=== PATIENT | female | born 1990 | race African-American/Black ===

== ENCOUNTER 2016-05-07 21:30 | Emergency (ER) | payer OTHER ==
[~2016-05-07] VITALS: Ht 160 cm; Wt 91.6 kg
[~2016-05-07 21:30] MED LIST: ACETAMINOPHEN-1 EAC1 PO; ACETAMINOPHEN-120 ML PO; AMOXICILLIN875 MG PO; APAP500; AUGMENTIN 500-1 EACH PO; BACTRIM DS TAB1 EACH PO; CITRATE OF MAG296 ML PO; COLACE 100 MG100 MG; DERMOPLAST SPRA56 ML; FLAGYL500 MG PO; FLEET ENEMA118 ML RC; HYDROCODON-ACE1 EAC7 PO; HYDROCORTISONE30 G9; IBUPROFEN 200200 M1 PO; IBUPROFEN 600600 M1 PO; IBUPROFEN 800800 M1; IBUPROFEN 800800 MG PO; IRON325; LANOLIN56 GM; MACROBID 100 M100 M1 PO; NAPROSYN500 MG PO; NOHOMEMEDICATIONS; NORCO 5-325 TA1 EACH PO; PHENERGAN 25 MG25 M1 PO; PRENATAL COMPL1 EACH PO; PRILOSEC40 MG PO; TRINATE TABLET1 TAB PO; TUCKS MEDICATE1 EAC1; ULTRAM 50MG TAB50 MG PO; UNICOMPLEX M TA1 TA1 PO; VICODIN 5-5001 EACH PO; ZANTAC 150MG T150 M1 PO; ZOFRAN 4 MG ORAL4 MG PO; ZOFRAN ODT4 MG PO
[2016-05-07 21:51] LABS: URINE BILIRUBIN NEGATIVE (Negative); URINE BLOOD TRACE (Negative); URINE COLOR YELLOW; URINE GLUCOSE-RANDOM* NEGATIVE (Negative); URINE KETONES TRACE (Negative); URINE LEUKOCYTES-REFLEX NEGATIVE (Negative); URINE PROTEIN (DIPSTICK) TRACE (Negative); URINE UROBILINOGEN >= 8.0 E.U./dl (0.2-1.0)
[2016-05-07 22:07] LABS: ABSOLUTE NEUTROPHILS 2.3 thou/uL (1.4-8.2); BASOPHILS 0.4 % (0.0-2.0); EOSINOPHILS 1.9 % (0.0-3.0); HEMATOCRIT 38.7 % (37.0-47.0); HEMOGLOBIN 12.9 gm/dL (12.0-15.0); LYMPHOCYTES 35.2 % (24.0-44.0); MCH 29.1 pg (26.0-34.0); MCHC 33.4 g/dL (28.0-37.0); MCV 87.1 fL (80.0-100.0); MONOCYTES 8.8 % (1.0-8.0); PLATELET COUNT 283 thou/uL (150-400); POLYS 53.7 % (36.0-66.0); RBC 4.45 mil/uL (4.20-5.00); RDW 14.4 % (10.5-14.5); WBC 4.3 thou/uL (4.0-11.0)
[2016-05-07 22:08] LABS: MANUAL DIFF NO
[2016-05-07 23:18] LABS: ALBUMIN 2.8 g/dL (3.4-5.0); CALCIUM 7.7 mg/dL (8.5-10.1); CREATININE 0.7 mg/dL (0.6-1.3); POTASSIUM 3.1 mmol/L (3.5-5.1); TOTAL BILIRUBIN 0.5 mg/dL (<0.1-1.0); TOTAL PROTEIN 6.6 g/dL (6.4-8.2)
[2016-05-07] MEDS ORDERED: ZOFRAN ODT4 MG PO (23:39)
[2016-05-08 00:21] VITALS: BP 126/70
== END 2016-05-08 00:22 | disposition home or self-care (01) ==
LOC: ER 21:30
PROVIDERS: Emergency Medicine
DX: R11.2 Nausea with vomiting, unspecified (principal)

== ENCOUNTER 2016-07-17 20:47 | Emergency (ER) | payer OTHER ==
[~2016-07-17] VITALS: Ht 157.5 cm; Wt 90.7 kg
[~2016-07-17 20:47] MED LIST changes: +POLYMYXIN B/TMP10 ML OP
[2016-07-17] MEDS ORDERED: NORCO 5-325 TA1 EACH PO (21:41)
[2016-07-17 21:55] VITALS: BP 121/79
== END 2016-07-17 21:55 | disposition home or self-care (01) ==
LOC: ER 20:47
DX: S93.502A Unspecified sprain of left great toe, initial encounter (principal); X58.XXXA Exposure to other specified factors, initial encounter; Y93.89 Activity, other specified; Y92.89 Other specified places as the place of occurrence of the external cause; Y99.8 Other external cause status

== ENCOUNTER 2016-10-08 18:03 | Emergency (ER) | payer OTHER ==
[~2016-10-08] VITALS: Ht 157.5 cm; Wt 90.7 kg
[2016-10-08 18:20] LABS: URINE BILIRUBIN NEGATIVE (Negative); URINE BLOOD TRACE (Negative); URINE COLOR YELLOW; URINE GLUCOSE-RANDOM* NEGATIVE (Negative); URINE KETONES NEGATIVE (Negative); URINE LEUKOCYTES-REFLEX 2+ (Negative); URINE PROTEIN (DIPSTICK) NEGATIVE (Negative); URINE UROBILINOGEN 0.2 E.U./dl (0.2-1.0)
[2016-10-08 18:29] LABS: CASTS None Seen /LPF (None Seen); CRYSTALS None Seen /LPF (None Seen); SQUAMOUS >10 Many /LPF (0-3); URINE RBC None Seen /HPF (0-2); URINE WBC-REFLEX 6-15 Few /HPF (0-5)
[2016-10-08 18:30] LABS: AMORPHOUS PHOSPHATES Few /LPF (None Seen)
[2016-10-08 18:30] LABS: ABSOLUTE NEUTROPHILS 5.4 thou/uL (1.4-8.2); BASOPHILS 0.5 % (0.0-2.0); EOSINOPHILS 1.2 % (0.0-3.0); HEMATOCRIT 40.5 % (37.0-47.0); HEMOGLOBIN 13.8 gm/dL (12.0-15.0); LYMPHOCYTES 25.8 % (24.0-44.0); MCH 29.7 pg (26.0-34.0); MCHC 34.1 g/dL (28.0-37.0); MCV 86.9 fL (80.0-100.0); MONOCYTES 4.4 % (1.0-8.0); PLATELET COUNT 294 thou/uL (150-400); POLYS 68.1 % (36.0-66.0); RBC 4.66 mil/uL (4.20-5.00); WBC 7.9 thou/uL (4.0-11.0)
[2016-10-08 18:31] LABS: MANUAL DIFF NO
[2016-10-08 18:36] LABS: CALCIUM 9.7 mg/dL (8.5-10.1); CREATININE 0.8 mg/dL (0.6-1.0); POTASSIUM 3.8 mmol/L (3.5-5.1)
[2016-10-08] MEDS ORDERED: REGLAN 10 MG TA10 MG PO (19:24)
[2016-10-08] MEDS ORDERED: TRINATE TABLET1 TAB PO (19:24)
[2016-10-08 19:35] VITALS: BP 109/76
[2016-10-08] MEDS ORDERED: KEFLEX500 MG PO (19:35)
== END 2016-10-08 19:35 | disposition home or self-care (01) ==
LOC: ER 18:03
PROVIDERS: Physician Assistant
DX: O23.41 Unspecified infection of urinary tract in pregnancy, first trimester (principal); R51 Headache; R11.0 Nausea; R42 Dizziness and giddiness; Z3A.01 Less than 8 weeks gestation of pregnancy

== ENCOUNTER 2018-02-12 21:14 | Emergency (ER) | payer OTHER ==
[~2018-02-12] VITALS: Ht 157.5 cm; Wt 97.5 kg
[~2018-02-12 21:14] MED LIST changes: +KEFLEX500 MG PO; +REGLAN 10 MG TA10 MG PO
[2018-02-12 21:51] LABS: URINE CLARITY CLEAR; URINE COLOR YELLOW
[2018-02-12 21:52] LABS: URINE BILIRUBIN NEGATIVE (Negative); URINE BLOOD TRACE (Negative); URINE GLUCOSE-RANDOM* NEGATIVE (Negative); URINE KETONES NEGATIVE (Negative); URINE LEUKOCYTES-REFLEX NEGATIVE (Negative); URINE NITRITE-REFLEX NEGATIVE (Negative); URINE PROTEIN (DIPSTICK) NEGATIVE (Negative); URINE SPECIFIC GRAVITY > 1.030 (1.005-1.035); URINE UROBILINOGEN 0.2 E.U./dl (0.2-1.0)
[2018-02-12] MEDS ORDERED: NAPROSYN500 MG PO (22:36)
[2018-02-12 23:03] VITALS: BP 137/76
== END 2018-02-12 23:03 | disposition home or self-care (01) ==
LOC: ER 21:14
PROVIDERS: Emergency Medicine
DX: N94.3 Premenstrual tension syndrome (principal); R30.0 Dysuria; R10.9 Unspecified abdominal pain

== ENCOUNTER 2019-01-03 09:32 | Emergency (ER) | payer OTHER ==
[~2019-01-03] VITALS: Ht 154.9 cm; Wt 108.9 kg
[2019-01-03 11:00] VITALS: BP 120/80
== END 2019-01-03 11:01 | disposition home or self-care (01) ==
LOC: ER 09:32
DX: J02.9 Acute pharyngitis, unspecified (principal)